=== PATIENT | female | born 1985 | race African-American/Black ===

== ENCOUNTER 2024-05-20 06:31 | Inpatient (IN) | payer BC, OTHER ==
[~2024-05-20] VITALS: Ht 165.1 cm; Wt 78.0 kg
[2024-05-20] MEDS: SODIUM CHLORIDE 0.9% 1,000 ML IV SCH (01:23)
[2024-05-20] MEDS: ONDANSETRON HCL 4MG/2ML INJ IV STA (07:02)
[2024-05-20] MEDS: MORPHINE SULFATE 4 MG/ML INJ (FOR IV/IM USE) IV STA (07:02)
[2024-05-20] MEDS: LABETALOL 5MG/ML 4ML INJ IV ONE ×2 (07:02→12:46)
[2024-05-20] MEDS: SODIUM CHLORIDE 0.9% 1,000 ML IV ONE (07:02)
[2024-05-20 08:36] LABS: CHLORIDE 95 mEq/L (98-107); POTASSIUM 4.1 mEq/L (3.5-5.1); SODIUM 135 mEq/L (136-145)
[2024-05-20 08:37] LABS: CALCIUM 10.3 mg/dL (8.7-10.4); CARBON DIOXIDE 19 mEq/L (21-32); D-DIMER 0.98 mg/L FEU (<0.50); INR 1.1; PROTHROMBIN TIME 12.2 sec (9.6-11.0)
[2024-05-20 08:42] LABS: CREATININE 1.1 mg/dL (0.6-1.0); GLUCOSE 361 mg/dL (70-105)
[2024-05-20 08:43] LABS: UREA NITROGEN BLOOD 8 mg/dL (9-23)
[2024-05-20 08:44] LABS: ALANINE AMINOTRANSFERASE 71 IU/L (10-49); ALBUMIN 4.6 g/dL (3.2-4.8); ASPARTATE AMINOTRANSFERASE 206 IU/L (<34); BILIRUBIN DIRECT 1.2 mg/dL (<=3.0)
[2024-05-20 08:45] LABS: BASOPHILS % 0.6 % (0.0-2.0); BILIRUBIN TOTAL 2.7 mg/dL (0.1-1.0); DIFFERENTIAL COMMENT 0; EOSINOPHILS % 0.1 % (0.0-5.0); HEMATOCRIT. 48.3 % (36.0-48.0); MEAN CORPUSCULAR HEMOGLOBIN 33.3 pg (28.0-32.0); MEAN CORPUSCULAR VOLUME 100.8 fL (81.0-99.0); MEAN PLATELET VOLUME 9.8 fl (7.4-10.4); MONOCYTES % 6.5 % (2.0-8.0); NEUTROPHILS % 83.8 % (40.0-76.0); PLATELET 211 x1000/uL (130-400); PROTEIN TOTAL 9.5 g/dL (6.0-8.3); RED CELL DISTRIBUTION WIDTH 16.7 % (11.6-14.6); TROPONIN I HIGH SENSITIVITY 14 ng/L (3.0-34); WHITE BLOOD COUNT 9.3 x1000/uL (4.5-11.0)
[2024-05-20 08:47] LABS: ETHANOL BLOOD < 10 mg/dL (<10)
[2024-05-20 08:48] LABS: THYROID STIMULATING HORMONE 4.74 uIU/mL (0.55-4.78)
[2024-05-20 08:50] LABS: HCG SCREEN NEGATIVE
[2024-05-20 09:06] LABS: LACTIC ACID 9.1 mmol/L (0.4-2.0)
[2024-05-20] MEDS: ACETAMINOPHEN 325MG TABLET PO ONE (09:30)
[2024-05-20] MEDS: CEFTRIAXONE 1GM/50ML 50 ML IV ONE (11:21)
[2024-05-20] MEDS: IOHEXOL-350 100 ML BOTTLE ONE (11:22)
[2024-05-20] MEDS: LORAZEPAM 1MG TABLET PO ONE (13:34)
[2024-05-20 14:50] VITALS: BP 138/98; PULSE 84; RESP 18; TEMP 36.8
[2024-05-20] MEDS ORDERED: MAGNESIUM/ALUMINUM HYDROXIDE/SIMETHICONE 30ML UDC PO PRN (15:15)
[2024-05-20] MEDS ORDERED: DEXTROSE 50% WATER 50ML SYRINGE IV PRN (15:15)
[2024-05-20] MEDS ORDERED: DIPHENHYDRAMINE 50MG/ML VIAL IV PRN (15:15)
[2024-05-20] MEDS ORDERED: ONDANSETRON HCL 4MG/2ML INJ IV PRN (15:15)
[2024-05-20] MEDS ORDERED: ACETAMINOPHEN 325MG TABLET PO PRN ×2 (15:15)
[2024-05-20] MEDS: CLONIDINE 0.1MG TABLET PO PRN (15:22)
[2024-05-20] MEDS: LISINOPRIL 20MG TABLET PO SCH (15:25)
[2024-05-20 16:00] VITALS: BP 138/98; PULSE 80; RESP 16; TEMP 37; O2SAT 98
[2024-05-20] MEDS: BLOOD SUGAR DIAGNOSTIC STRIP TEST SCH (17:49)
[2024-05-20] MEDS: INSULIN LISPRO 100 UNITS/ML SUBCUT SCH (18:23)
[2024-05-20] MEDS: INSULIN GLARGINE 100 UNITS/ML SUBCUT SCH (18:26)
[2024-05-20 20:00] VITALS: BP 138/98; PULSE 85; RESP 16; TEMP 37; O2SAT 98
[2024-05-20 21:34] LABS: BETA HYDROXYBUTYRATE 0.1 mMol/L (0.0-0.3)
[2024-05-20] MEDS: GABAPENTIN 100MG CAPSULE PO SCH (22:00)
[2024-05-20] MEDS: KETOROLAC 30MG/ML VIAL IV PRN (22:01)
[2024-05-20] MEDS: SODIUM CHLORIDE 0.9% 3ML FLUSH IVF SCH (22:08)
[2024-05-21] VITALS: BP 130/81; PULSE 90; RESP 14; TEMP 36.7; O2SAT 97
[2024-05-21 04:00] VITALS: BP 118/77; PULSE 71; RESP 16; TEMP 36.7; O2SAT 97
[2024-05-21 07:40] LABS: TROPONIN I HIGH SENSITIVITY 12 ng/L (3.0-34)
[2024-05-21 08:00] VITALS: BP 101/20; PULSE 82; RESP 17; TEMP 36.8; O2SAT 99
[2024-05-21 11:45] LABS: HEMATOCRIT 39.3 % (36.0-48.0); MEAN CORPUSCULAR HGB CONC 33.1 g/dL (31.0-37.0); MEAN CORPUSCULAR VOLUME 102.9 fL (81.0-99.0); PLATELET 116 x1000/uL (130-400); RED BLOOD CELL COUNT 3.82 mill/uL (4.2-5.4); RED CELL DISTRIBUTION WIDTH 17.1 % (11.6-14.6); WHITE BLOOD COUNT 5.3 x1000/uL (4.5-11.0)
[2024-05-21 11:56] LABS: CHLORIDE 101 mEq/L (98-107); POTASSIUM 3.5 mEq/L (3.5-5.1); SODIUM 136 mEq/L (136-145)
[2024-05-21 11:57] LABS: CALCIUM 8.9 mg/dL (8.7-10.4); CARBON DIOXIDE 24 mEq/L (21-32)
[2024-05-21 12:00] VITALS: BP 151/116; PULSE 84; RESP 18; TEMP 36.7; O2SAT 98
[2024-05-21 12:02] LABS: CREATININE 0.9 mg/dL (0.6-1.0); GLUCOSE 140 mg/dL (70-105); UREA NITROGEN BLOOD 10 mg/dL (9-23)
[2024-05-21] MEDS: HYDRALAZINE 20MG/ML VIAL IV PRN (15:32)
[2024-05-21 16:00] VITALS: BP 142/92; PULSE 107; RESP 18; TEMP 37.7; O2SAT 98
[2024-05-21] MEDS: METFORMIN HCL 500MG TABLET PO SCH (18:16)
[2024-05-21 20:00] VITALS: BP 136/93; PULSE 105; RESP 15; TEMP 36.9; O2SAT 99
[2024-05-21] MEDS: GABAPENTIN 100MG CAPSULE PO SCH (21:42)
[2024-05-22] VITALS: BP 151/94; PULSE 86; RESP 16; TEMP 37; O2SAT 97
[2024-05-22 04:00] VITALS: BP 152/112; PULSE 93; RESP 17; TEMP 37.1; O2SAT 99
[2024-05-22 08:00] VITALS: BP 135/95; PULSE 63; RESP 20; TEMP 36.8; O2SAT 98
[2024-05-22] MEDS ORDERED: METOPROLOL SUCCINATE 50MG ER TABLET PO SCH (09:00)
[2024-05-22] MEDS: HYDROCHLOROTHIAZIDE 12.5MG CAPSULE PO SCH (09:20)
[2024-05-22] MEDS: METOPROLOL SUCCINATE 50MG ER TABLET PO SCH (09:21)
[2024-05-22] MEDS: LORAZEPAM 0.5MG TABLET PO PRN (10:34)
[2024-05-22] MEDS: INSULIN GLARGINE 100 UNITS/ML SUBCUT SCH (10:42)
[2024-05-22 12:00] VITALS: BP 135/93; PULSE 71; RESP 12; TEMP 36.8; O2SAT 100
[2024-05-22 16:00] VITALS: BP 140/80; PULSE 80; RESP 16; TEMP 36.7; O2SAT 98
[2024-05-22 20:00] VITALS: BP 140/94; PULSE 82; RESP 20; TEMP 36.6; O2SAT 99
[2024-05-22] MEDS: ZOLPIDEM TARTRATE 5MG TABLET PO PRN (21:10)
[2024-05-23] VITALS: BP 145/85; PULSE 77; RESP 16; TEMP 36.6; O2SAT 98
[2024-05-23 04:00] VITALS: BP 141/87; PULSE 70; RESP 16; TEMP 36.7; O2SAT 98
[2024-05-23] MEDS: GLIMEPIRIDE 2MG TABLET PO SCH (06:28)
[2024-05-23 08:00] VITALS: BP 155/93; PULSE 71; RESP 18; TEMP 36.8; O2SAT 97
[2024-05-23 14:06] VITALS: BP 138/91; PULSE 89; TEMP 98.5; O2SAT 98
== END 2024-05-23 14:40 | disposition home or self-care (01) | DRG 74 ==
LOC: ER 06:31 → 3WST 12:49
PROVIDERS: ADMIT Internal Medicine; ATTEND Internal Medicine
DX: E11.40 Type 2 diabetes mellitus with diabetic neuropathy, unspecified (principal); I10 Essential (primary) hypertension; R07.89 Other chest pain; Z79.84 Long term (current) use of oral hypoglycemic drugs; Z79.899 Other long term (current) drug therapy
CPT/HCPCS: 36415; 71045; 71275; 76700; 80048; 80076; 80320; 82010; 82962; 83036; 83605; 83880; 84443; 84484; 84703; 85025; 85027; 85379; 86850; 86900; 93005; 93306; 97161; 97165; 99291; A4663; J0360; J0696; J1815; J1885; J2270; J2405; J3490; J7030; Q9967; G0480